=== PATIENT | male | born 1970 | race Hispanic/Latino ===

== ENCOUNTER 2023-02-20 15:39 | Emergency (ER) | payer BC ==
[~2023-02-20] VITALS: Ht 167.6 cm; Wt 93.0 kg
[2023-02-20 15:48] VITALS: BP 145/84
--- NOTE | 2023-02-20 16:30 | DIREP ---
PROCEDURE:XRAY HAND MIN 3 VW-RT COMPARISON:None. INDICATIONS:injury/pain FINDINGS: BONES:Normal. JOINTS:Normal. SOFT TISSUES:Normal. OTHER:No additional findings. CONCLUSION:Normal examination. Dictated by: Kenya Quiroz M.D. on 02/20/2023 at 04:28 PM
[2023-02-20] MEDS ORDERED: TORADOL IM STA (16:48)
[2023-02-20] MEDS ORDERED: TORADOL ONE (16:54)
--- NOTE | 2023-02-20 16:55 | ER.PDOC ---
General Chief Complaint: Extremities Stated Complaint: FINGER INJURY Time seen by MD: 15:48 Source: patient Exam Limitations: no limitations History of Present Illness Initial Comments Patient is a 52-year-old male with a past medical history documented later in this chart who comes in with right index finger pain. Patient states he does not know if he got bit by a spider or has a cactus spine in his right index finger he just states that after he did poke it with His spine, started swelling up and turned red started hurting. Patient states that the pain is sore in nature made worse with movement palpation of that finger and better when is left alone. He denies any fevers or any other symptoms or concerns at this time. Past Medical History Medical History: no pertinent history Surgical History: no surgical history Family History Significant Family History: no pertinent family hx Social History Smoking: non-smoker Alcohol Use: none Drug Use: none Reviewed Nursing Reviewed: Vital Signs, Abn. Noted, Nursing Assessment Review of Systems Constitutional: no symptoms reported EENTM: no symptoms reported Respiratory: no symptoms reported Cardiovascular: no symptoms reported Gastrointestinal: no symptoms reported Genitourinary: no symptoms reported Musculoskeletal: joint swelling Skin: change in color Psychiatric/Neurological: no symptoms reported Physical Exam General Appearance: Alert, No Apparent Distress Hand: tenderness (Right index finger mildly swollen with erythema no felon likely) Wrist: nml inspection, non-tender, nml ROM Neuro: sensation nml, motor nml Vascular: no vascular compromise Tendons: tendon function nml Forearm/Elbow/Arm: uninjured above wrist Skin: warm/dry Head/ENT: nml inspection, pharynx nml Neck/Back: nml inspection, non-tender Resp/CVS: no resp distress, lungs clear, heart sounds nml, reg. rate & rhythm Abdomen: non-tender, no organomegaly Results/Orders Results/Orders Orders - ALYSIA SHEPPARD MD Xr Hand Rt (02/20/23 15:55) Ketorolac Tromethamine (Toradol) (02/20/23 16:48) Vital Signs Date Time Temp Pulse Resp B/P (MAP) Pulse Ox O2 Delivery O2 Flow Rate FiO2 02/20/23 15:48 98.2 60 18 02/20/23 15:48 98.2 60 18 97 02/20/23 15:48 98.2 60 18 145/84 (104) 97 Room Air* 0 21 Progress Progress Patient here with small infection to his right index finger not quite a felon yet thus we will go ahead and discharge patient with ketorolac and clindamycin we will give him ketorolac here before he goes and will obtain an x-ray just to make sure there is no visible foreign bodies in his finger. [id number] still pending his medication however his x-ray per my independent interpretation shows nothing acute radiology later agrees.Patient voiced understanding when to follow-up and when to return to the ER. ER DEPART Departure Time of Disposition: 16:54 Disposition: 01 HOME / SELF CARE / HOMELESS Impression: Primary Impression: Cellulitis Condition: Improved Patient Instructions: Cellulitis, [id number] Referrals: PCP,UNKNOWN (PCP) PRIMARY CARE PROVIDER Additional Instructions: Follow-up with your primary care physician within the next week. If you have any new persistent or worsening symptoms or concerns seek medical attention. Please take all medications as prescribed. Duration or Time Spent with Pa: 15 Problem Qualifiers Primary Impression: Cellulitis Site of cellulitis: extremity Site of cellulitis of extremity: finger Laterality: right Qualified Codes: L03.011 - Cellulitis of right finger ALYSIA SHEPPARD MD Feb 20, 2023 16:55
== END 2023-02-20 17:00 | disposition home or self-care (01) ==
LOC: ER 15:39
DX: L03.011 Cellulitis of right finger (principal)
CPT/HCPCS: 99284; 96372; 73130; J1885